=== PATIENT | female | born 1995 | race Two or more races ===

== ENCOUNTER 2019-10-25 15:58 | Emergency (ER) | payer OTHER ==
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
[2019-10-25 16:59] LABS: AMORPHOUS SEDIMENT,URINE TRACE /HPF; APPEARANCE,URINE CLOUDY; BILIRUBIN,URINE NEGATIVE (NEGATIVE); COLOR,URINE YELLOW; GLUCOSE, URINE NEGATIVE (NEGATIVE); KETONES,URINE TRACE mg/dL (NEGATIVE); LEUKOCYTE ESTERASE,URINE NEGATIVE (NEGATIVE); NITRITE,URINE NEGATIVE (NEGATIVE); PROTEIN,URINE 30 mg/dL (NEGATIVE); URINE SPECIFIC GRAVITY 1.021
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
[2019-10-25] MEDS ORDERED: CYCLOBENZAPRINE HCL 10 MG TABLET PO ONE (18:07)
[2019-10-25 18:27] VITALS: BP 114/74
== END 2019-10-25 18:20 | disposition home or self-care (01) ==
LOC: ER 15:58
DX: S29.012A Strain of muscle and tendon of back wall of thorax, initial encounter (principal); M54.5 Low back pain; M54.9 Dorsalgia, unspecified; M54.2 Cervicalgia; M54.6 Pain in thoracic spine; R06.02 Shortness of breath; V87.7XXA Person injured in collision between other specified motor vehicles (traffic), initial encounter; Z88.8 Allergy status to other drugs, medicaments and biological substances
CPT/HCPCS: 72070; 72110; 81001; 81025; 99283